=== PATIENT | female | born 1970 | race Caucasian/White ===

== ENCOUNTER 2019-10-15 10:01 | Inpatient (IN) ==
[2019-10-15] MEDS ORDERED: Methyl Salicylate/Menthol 57 APPL/57 GM TUBE TP PRN (14:21)
[2019-10-15] MEDS: *HR* OxyCODONE Immed Rel 5 MG TABLET PO PRN (18:01)
[2019-10-15] MEDS: *HR* LORazepam 1 MG TABLET PO PRN (20:58)
[2019-10-15] MEDS: Metoprolol 100 MG TABLET PO SCH (20:58)
[2019-10-15] MEDS: Apixaban 5 MG TABLET PO SCH (20:58)
[2019-10-16] MEDS: *HR* OxyCODONE Immed Rel 5 MG TABLET PO PRN ×5 (00:35→20:10)
[2019-10-16 07:08] LABS: Basophils # 0.1 K/mcL (0.0-0.2); Eosinophils # 0.3 K/mcL (0.0-0.6); Eosinophils % 3.5 %; Hemoglobin 9.4 g/dL (11.5-15.4); Immature Granulocytes % 0.2 % (0-4); Lymphocytes # 1.6 K/mcL (0.6-4.6); Lymphocytes % 19.7 %; Mean Corpuscular HGB Conc 31.3 g/dL (31.6-35.5); Mean Corpuscular Volume 83.1 fL (83.0-100.0); Mean Platelet Volume 9.1 fL (9.4-12.4); Monocytes % 12.2 %; Neutrophils # 5.1 K/mcL (1.6-8.9); Platelet Count 890 K/mcL (140-400); Red Blood Count 3.61 M/mcL (3.82-4.97); Red Cell Distribution Width 18.7 % (11.5-14.5); Segmented Neutrophils % 63.4 %
[2019-10-16 07:26] LABS: BUN/Creatinine Ratio 13 (6-26); Blood Urea Nitrogen 7 mg/dL (6-20); Calcium 8.9 mg/dL (8.6-10.3); Carbon Dioxide 29 mEq/L (23-29); Chloride 95 mEq/L (98-107); Glucose 127 mg/dL (70-105); Osmolality,Calculated 274 (280-300); Potassium 3.9 mEq/L (3.5-5.1); Sodium 132 mEq/L (136-145); eGFR For African Americans > 60 (> 60); eGFR For Non-African Americans > 60 (> 60)
[2019-10-16] MEDS: Apixaban 5 MG TABLET PO SCH ×2 (08:02→20:10)
[2019-10-16] MEDS: Metoprolol 100 MG TABLET PO SCH (08:02)
[2019-10-16] MEDS: Folic Acid 1 MG TABLET PO SCH (08:02)
[2019-10-16] MEDS: *HR* LORazepam 1 MG TABLET PO PRN (20:13)
[2019-10-17] MEDS: *HR* OxyCODONE Immed Rel 5 MG TABLET PO PRN ×2 (06:10→13:28)
[2019-10-17] MEDS: Ondansetron ODT 4 MG TAB.RAPDIS SL PRN (07:25)
[2019-10-17] MEDS: Apixaban 5 MG TABLET PO SCH ×2 (09:58→20:28)
[2019-10-17] MEDS: Folic Acid 1 MG TABLET PO SCH (09:58)
[2019-10-17] MEDS ORDERED: *HR* Promethazine 25 MG/ML VIAL IM ONE (14:09)
[2019-10-17] MEDS: *HR* LORazepam 1 MG TABLET PO PRN (20:37)
[2019-10-18 06:08] LABS: Basophils # 0.1 K/mcL (0.0-0.2); Basophils % 0.6 %; Eosinophils # 0.3 K/mcL (0.0-0.6); Eosinophils % 3.2 %; Hematocrit 29.1 % (35.3-44.9); Hemoglobin 9.2 g/dL (11.5-15.4); Immature Granulocytes % 0.4 % (0-4); Lymphocytes # 1.5 K/mcL (0.6-4.6); Lymphocytes % 18.6 %; Mean Corpuscular HGB Conc 31.6 g/dL (31.6-35.5); Mean Corpuscular Hemoglobin 25.8 pg (28.0-33.3); Mean Corpuscular Volume 81.7 fL (83.0-100.0); Monocytes % 12.6 %; Neutrophils # 5.1 K/mcL (1.6-8.9); Platelet Count 874 K/mcL (140-400); Red Blood Count 3.56 M/mcL (3.82-4.97); Red Cell Distribution Width 18.1 % (11.5-14.5); Segmented Neutrophils % 64.6 %; White Blood Count 7.9 K/mcL (4.3-11.1)
[2019-10-18] MEDS ORDERED: *HR* LORazepam 0.5 MG TABLET PO ONE (06:23)
[2019-10-18 06:24] LABS: BUN/Creatinine Ratio 11 (6-26); Blood Urea Nitrogen 5 mg/dL (6-20); Carbon Dioxide 28 mEq/L (23-29); Chloride 95 mEq/L (98-107); Glucose 124 mg/dL (70-105); Osmolality,Calculated 271 (280-300); Potassium 3.9 mEq/L (3.5-5.1); Sodium 131 mEq/L (136-145); eGFR For African Americans > 60 (> 60); eGFR For Non-African Americans > 60 (> 60)
[2019-10-18] MEDS: Ondansetron ODT 4 MG TAB.RAPDIS SL PRN (07:37)
[2019-10-18] MEDS: Apixaban 5 MG TABLET PO SCH ×2 (08:41→20:49)
[2019-10-18] MEDS: Folic Acid 1 MG TABLET PO SCH (08:41)
[2019-10-18] MEDS: *HR* OxyCODONE Immed Rel 5 MG TABLET PO PRN ×2 (08:45→20:50)
[2019-10-18] MEDS ORDERED: *HR* LORazepam 0.5 MG TABLET PO PRN (14:31)
[2019-10-18] MEDS: *HR* LORazepam 1 MG TABLET PO PRN (20:49)
[2019-10-18 21:25] LABS: Basophils # 0.1 K/mcL (0.0-0.2); Basophils % 1.1 %; Eosinophils # 0.4 K/mcL (0.0-0.6); Eosinophils % 4.1 %; Hematocrit 33.3 % (35.3-44.9); Hemoglobin 10.4 g/dL (11.5-15.4); Immature Granulocytes % 0.5 % (0-4); Lymphocytes # 1.8 K/mcL (0.6-4.6); Lymphocytes % 21.1 %; Mean Corpuscular HGB Conc 31.2 g/dL (31.6-35.5); Mean Corpuscular Hemoglobin 25.4 pg (28.0-33.3); Mean Corpuscular Volume 81.4 fL (83.0-100.0); Monocytes # 0.9 K/mcL (0.0-1.3); Monocytes % 10.1 %; Neutrophils # 5.5 K/mcL (1.6-8.9); Platelet Count 1078 K/mcL (140-400); Red Blood Count 4.09 M/mcL (3.82-4.97); Red Cell Distribution Width 18.1 % (11.5-14.5); Segmented Neutrophils % 63.1 %; White Blood Count 8.7 K/mcL (4.3-11.1)
[2019-10-18 21:41] LABS: Anisocytosis 1+ (Not Present); Platelet Estimate Marked Increase (Normal)
[2019-10-19] MEDS: *HR* OxyCODONE Immed Rel 5 MG TABLET PO PRN ×3 (02:24→20:28)
[2019-10-19] MEDS: Folic Acid 1 MG TABLET PO SCH (09:43)
[2019-10-19] MEDS: Apixaban 5 MG TABLET PO SCH ×2 (09:44→20:28)
[2019-10-19 11:34] LABS: Basophils # 0.1 K/mcL (0.0-0.2); Eosinophils # 0.3 K/mcL (0.0-0.6); Eosinophils % 4.2 %; Hematocrit 29.8 % (35.3-44.9); Hemoglobin 9.5 g/dL (11.5-15.4); Immature Granulocytes % 0.6 % (0-4); Lymphocytes # 1.4 K/mcL (0.6-4.6); Lymphocytes % 17.4 %; Mean Corpuscular HGB Conc 31.9 g/dL (31.6-35.5); Mean Corpuscular Hemoglobin 25.8 pg (28.0-33.3); Monocytes % 12.8 %; Platelet Count 885 K/mcL (140-400); Red Blood Count 3.68 M/mcL (3.82-4.97); White Blood Count 7.8 K/mcL (4.3-11.1)
[2019-10-19] MEDS: Ondansetron ODT 4 MG TAB.RAPDIS SL PRN (18:40)
[2019-10-19] MEDS: *HR* LORazepam 1 MG TABLET PO PRN (20:36)
[2019-10-20] MEDS: Ondansetron ODT 4 MG TAB.RAPDIS SL PRN (02:59)
[2019-10-20 05:57] LABS: Basophils # 0.1 K/mcL (0.0-0.2); Eosinophils # 0.4 K/mcL (0.0-0.6); Eosinophils % 5.5 %; Hemoglobin 9.1 g/dL (11.5-15.4); Immature Granulocytes % 0.4 % (0-4); Lymphocytes # 1.6 K/mcL (0.6-4.6); Lymphocytes % 21.5 %; Mean Corpuscular HGB Conc 31.4 g/dL (31.6-35.5); Mean Corpuscular Hemoglobin 25.5 pg (28.0-33.3); Mean Corpuscular Volume 81.2 fL (83.0-100.0); Monocytes # 0.9 K/mcL (0.0-1.3); Monocytes % 11.8 %; Neutrophils # 4.6 K/mcL (1.6-8.9); Platelet Count 864 K/mcL (140-400); Red Blood Count 3.57 M/mcL (3.82-4.97); Red Cell Distribution Width 17.9 % (11.5-14.5); Segmented Neutrophils % 59.8 %; White Blood Count 7.6 K/mcL (4.3-11.1)
[2019-10-20 06:27] LABS: BUN/Creatinine Ratio 12 (6-26); Blood Urea Nitrogen 6 mg/dL (6-20); Calcium 9.1 mg/dL (8.6-10.3); Carbon Dioxide 29 mEq/L (23-29); Chloride 95 mEq/L (98-107); Glucose 128 mg/dL (70-105); Osmolality,Calculated 275 (280-300); Potassium 3.7 mEq/L (3.5-5.1); Sodium 133 mEq/L (136-145); eGFR For African Americans > 60 (> 60); eGFR For Non-African Americans > 60 (> 60)
[2019-10-20] MEDS: Apixaban 5 MG TABLET PO SCH (08:19)
[2019-10-20] MEDS: Folic Acid 1 MG TABLET PO SCH (08:20)
[2019-10-20] MEDS: *HR* OxyCODONE Immed Rel 5 MG TABLET PO PRN (09:16)
[2019-10-20 10:20] VITALS: BP 128/78
[2019-10-22] MEDS ORDERED: Apixaban 5 MG TABLET PO SCH (21:00)
== END 2019-10-20 11:15 | disposition home health service (06) ==
LOC: INPGRE 13:36
PROVIDERS: ADMIT Family Medicine; ATTEND Family Medicine